=== PATIENT | male | born 1995 | race Caucasian/White ===

== ENCOUNTER 2016-10-20 10:46 | Emergency (ER) | payer BC ==
[2016-10-20 11:54] VITALS: BP 115/61
--- NOTE | 2016-10-20 13:09 | UC ---
Ear Complaint HPI - HPI Summary HPI Summary: left ear feels blocked. Has had earwax build-up in past. No recent illnesses, no fever - History of Current Complaint Chief Complaint: UCEar Stated Complaint: LEFT EAR COMPLAINT Time Seen by Provider: 10/20/16 13:04 Hx Obtained From: Patient Onset/Duration: Gradual Onset, Lasting Days - 4 Severity Initially: Mild Severity Currently: Mild Associated Signs/Symptoms: Positive: Hearing Loss - Allergies/Home Medications Allergies/Adverse Reactions: Allergies Allergy/AdvReac Type Severity Reaction Status Date / Time No Known Allergies Allergy Verified 10/20/16 11:54 PMH/Surg Hx/FS Hx/Imm Hx Previously Healthy: Yes Other History Of: Negative For: Anticoagulant Therapy - Surgical History Surgical History: None - Family History Known Family History: Positive: Unknown - Social History Occupation: Student Lives: Alone - dorm Alcohol Use: None Substance Use Type: None Smoking Status (MU): Never Smoked Tobacco Review of Systems Constitutional: Negative Skin: Negative Eyes: Negative ENT: Ear Ache Respiratory: Negative Cardiovascular: Negative Gastrointestinal: Negative Genitourinary: Negative Motor: Negative Neurovascular: Negative Musculoskeletal: Negative Neurological: Negative Psychological: Negative All Other Systems Reviewed And Are Negative: Yes Physical Exam Triage Information Reviewed: Yes Appearance: Well-Appearing, No Pain Distress, Well-Nourished Vital Signs: Initial Vital Signs Temp 97.9 F 10/20/16 11:51 Pulse 56 10/20/16 11:51 Resp 14 10/20/16 11:51 BP 115/61 10/20/16 11:51 Pulse Ox 99 10/20/16 11:51 Vital Signs Reviewed: Yes Eye Exam: Normal Eyes: Positive: Conjunctiva Clear ENT: Positive: Hearing grossly normal, Pharynx normal, Nasal congestion, TMs normal. Negative: Nasal drainage, TM bulging, TM dull, TM red, Tonsillar swelling, Tonsillar exudate, Trismus, Muffled/hoarse voice Neck exam: Normal Neck: Positive: Supple, Enlarged Nodes @ - bilat submandib Respiratory Exam: Normal Cardiovascular Exam: Normal Musculoskeletal Exam: Normal Neurological Exam: Normal Psychological Exam: Normal Skin Exam: Normal Ear Complaint Course/Dx - Course Course Of Treatment: flushed wax out. Canal appears mildly irritated. TM normal - Differential Dx/Diagnosis Differential Diagnosis/HQI/PQRI: Cerumen Impaction, Otitis Externa, Otitis Media Provider Diagnoses: cerumen impaction Discharge - Discharge Plan Condition: Stable Disposition: HOME Prescriptions: Neomyc/Polym/HC 1% OTIC SUSP* [Cortisporin Otic Susp 1%*] 4 drop LEFT EAR QID # 1 btl Patient Education Materials: Cerumen Impaction (ED) Referrals: Non Staff,Doctor [Primary Care Provider] -
== END 2016-10-20 13:37 | disposition home or self-care (01) ==
LOC: UCCORT 10:46
DX: H61.22 Impacted cerumen, left ear (principal)
CPT/HCPCS: 99213; G0463

== ENCOUNTER 2019-01-29 11:47 | Emergency (ER) | payer BC ==
[2019-01-29 12:30] VITALS: BP 105/61
[2019-01-29] MEDS ORDERED: Tetan/Diph/Pertus SYR(Tdap)* 0.5 ML SYR(BOOSTRIX) use SYR IM ONE (12:47)
--- NOTE | 2019-01-29 12:47 | UC ---
General HPI - HPI Summary HPI Summary: stepped on a nail that was in a board just [employer]. he pulled it out. it went through his shoe. he washed it with soap and water. he denies FB sensation. the board was from indoors but they had tossed it outside. last tetanus is unknown. - History of Current Complaint Chief Complaint: UCGeneralIllness Stated Complaint: RT FOOT INJURY-STEPPED ON NAIL Time Seen by Provider: 01/29/19 12:27 Hx Obtained From: Patient Onset/Duration: Sudden Onset Pain Intensity: 3 Associated Signs & Symptoms: Negative: Edema, Fever - Allergy/Home Medications Allergies/Adverse Reactions: Allergies Allergy/AdvReac Type Severity Reaction Status Date / Time No Known Allergies Allergy Verified 01/29/19 12:30 PMH/Surg Hx/FS Hx/Imm Hx Previously Healthy: Yes Other History Of: Negative For: Anticoagulant Therapy - Surgical History Surgical History: None - Family History Known Family History: Positive: Unknown - Social History Alcohol Use: Occasionally Substance Use Type: None Smoking Status (MU): Never Smoked Tobacco - Immunization History Hx Tetanus, Diphtheria Vaccination: No - uncertain Review of Systems All Other Systems Reviewed And Are Negative: No Constitutional: Negative: Fever Skin: Negative: Rash Motor: Negative: Decreased ROM Musculoskeletal: Negative: Arthralgia, Edema Physical Exam Triage Information Reviewed: Yes Appearance: Well-Appearing Vital Signs: Initial Vital Signs Temp 97.1 F 01/29/19 12:24 Pulse 56 01/29/19 12:24 Resp 16 01/29/19 12:24 BP 105/61 01/29/19 12:24 Pulse Ox 100 01/29/19 12:24 Vital Signs Reviewed: Yes Respiratory: Positive: No respiratory distress Cardiovascular: Positive: RRR Musculoskeletal: Positive: Other: - R foot= small pw just below ball of foot on laterside. no redness, swelling or drainage. fott is non tender and pt denies FB sensation with palpation. wounds does look superficial and at an angle. foot has gross s/v/m function. Neurological: Positive: Alert Psychological: Positive: Age Appropriate Behavior Skin Exam: Normal Skin: Negative: Rashes Course/Dx - Diagnoses Provider Diagnosis: Puncture wound Discharge - Sign-Out/Discharge Documenting (check all that apply): Patient Departure All imaging exams completed and their final reports reviewed: No Studies - Discharge Plan Condition: Stable Disposition: HOME Prescriptions: Cephalexin CAP* [Keflex CAP*] 500 mg PO TID 7 Days #21 cap Patient Education Materials: Puncture Wound (DC) Referrals: TWYLA Son [WilbertoBUSINESS, APPLICATION, OTHER] - If Needed - Billing Disposition and Condition Condition: STABLE Disposition: Home
== END 2019-01-29 13:00 | disposition home or self-care (01) ==
LOC: UCCORT 11:47
DX: S91.331A Puncture wound without foreign body, right foot, initial encounter (principal); W45.0XXA Nail entering through skin, initial encounter; Y92.9 Unspecified place or not applicable
CPT/HCPCS: 90471; 90715; 99212; G0463